=== PATIENT | male | born 1975 | race Caucasian/White ===

== ENCOUNTER 2016-11-28 07:25 | Day surgery (SDC) | payer BC, OTHER ==
[~2016-11-28] VITALS: Ht 185.4 cm; Wt 82.0 kg
[2016-11-28] VITALS (18 sets, daily range): BP systolic 100–119; BP diastolic 53–76; PULSE 74–92; RESP 14–20; Ht 185.4 cm; Wt 82.0 kg
[2016-11-28] MEDS ORDERED: ATOR40TA68 PO (07:44)
[2016-11-28] MEDS ORDERED: ASPI325T4 PO (07:44)
[2016-11-28] MEDS ORDERED: VERAPAMIL 5 MG INJ ONE (09:49)
[2016-11-28] MEDS ORDERED: NITROGLYCERIN (IC) 100 MCG/ML INJ ONE (09:49)
[2016-11-28] MEDS ORDERED: FENTAnyl 50 MCG/ML VIAL ONE (09:49)
[2016-11-28] MEDS ORDERED: MIDAZOLAM 1 MG/ML 2 ML INJ ONE (09:49)
[2016-11-28] MEDS ORDERED: HEPARIN 1000 UNITS/ML 10 ML INJ ONE (09:49)
[2016-11-28] MEDS ORDERED: LIDOCAINE 1% (MDV) 20 ML INJ ONE (09:49)
[2016-11-28] MEDS ORDERED: SOD CHLORIDE 0.9% 1,000 ML IV SCH (10:39)
--- NOTE | 2016-11-28 10:45 | OPR ---
Date/Time of Note Date/Time of Note DATE: 11/28/16 TIME: 10:44 Operative Report Preoperative Diagnosis Nstemi Postoperative Diagnosis non-obstructive cad Operation/Procedure Performed 1.[facility] Surgeon: AVNI BENJAMIN Anesthesia Type: moderate sedation Specimen: none Complications: no AVNI BENJAMIN Nov 28, 2016 10:45
[2016-11-28] MEDS ORDERED: AL HYDROX/MG HYDROX/SIMETH 30 ML CUP PO PRN (11:00)
[2016-11-28] MEDS ORDERED: morphine 2 MG INJ IV PRN (11:00)
[2016-11-28] MEDS ORDERED: ACETAMINOPHEN 325 MG TAB PO PRN (11:00)
[2016-11-28] MEDS ORDERED: ONDANSETRON 4 MG INJ IV PRN (11:00)
--- NOTE | 2016-11-28 11:37 | CARRPT ---
DATE OF PROCEDURE: 11/28/2016 REASON FOR LEFT HEART CATHETERIZATION: [id number] myocardial infarction. TYPE OF PROCEDURE: 1. Left heart catheterization. 2. Coronary angiography. 3. Left ventriculogram. 4. Three minutes of moderate consultation. ATTENDING PHYSICIAN: Dr. Magno Cedeno. ANESTHESIA: Conscious, local. INDICATION: Veo-[id number] myocardial infarction. BRIEF HISTORY AND HOSPITAL COURSE: Mr. Ponce is a 41-year-old male without significant past medical history, underwent a procedure for septal deviation. Postprocedure, patient developed chest pain and had a eyp-YV-[id number] myocardial infarction. left heart catheterization to assess the possibility of significant cardiac disease, vague complaints of chest pain and subsequent [id number]-GR-[id number] myocardial infarction. PROCEDURE: After informed consent was obtained, patient was brought to [facility] where his right and left groins were prepped and draped in the usual sterile fashion. 2 percent lidocaine was infiltrated in the right radial area in order to achieve adequate anesthesia. Using the modified Seldinger technique, the radial artery was cannulated and a 6-Ecuadorean arterial sheath, a 6-Ecuadorean JL3.5 catheter was used to cath the left main coronary ostium. After contrast injection was used, multiple views of the left coronary ostium were obtained. A JL3.5 was removed over a guidewire and a JR4 was used to cath the right coronary ostium. Contrast injection was used and multiple views of the right coronary ostium were obtained. The JR4 was removed over a guidewire and a 6-Ecuadorean pigtail was passed in the ascending aorta, placed in the left ventricle. The patient was given 20 of contrast. A left ventriculogram was performed and pullback across the aortic valve to assess for severe gradient, which there was none, removed. Subsequently, the patient's sheath was removed. TR band was applied. At the completion of the procedure, there were no known complications. FINDINGS: Coronary angiography: Left main, 4 mm, no significant stenosis. Circumflex proximally is a 3.5 mm vessel and has mild 20 percent stenosis in its mid portion. The remaining circumflex is free of any significant focal stenosis. It is a codominant vessel, and therefore, gives off a 2.5 mm PDA and a 2.5 mm posterolateral branch, each with no evidence of focal stenosis. The patient's LAD proximally is a 3.5 mm vessel with 20 percent stenosis mid portion. The remainder of the LAD is free of significant focal stenosis. Around the apex, there was a mid branching diagonal, 2 mm with no significant focal stenosis. The patient's right coronary artery proximally is 3 mm. It gives off a very small PDA subcentimeter with no significant focal stenosis. Left ventriculogram revealed a preserved left ejection fraction of 55 percent to 60 percent. Left ventricle end-diastolic: 20 pre LV-gram, 23 post LV-gram, no significant stenosis by gradient. 1+ mitral valve regurgitation. TOTAL FLUOROSCOPY TIME: 2.4 minutes. TOTAL CONTRAST: 90 cc. IMPRESSION: 1. 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 2. Elevated left heart filling pressures. 3. No significant aortic stenosis by gradient. RECOMMENDATIONS: In light of findings at this time, would: 1. Maximize medical management including initiation of beta blockers. 2. Aggressive risk factor reduction. 3. Patient [facility] post catheter[facility] with probable discharge later this afternoon. Dictated By: Paco Zimmer /thomas/prema /Document#: [id number] CC: Fer Garcia MD;*[facility]*
== END 2016-11-28 20:38 | disposition short-term general hospital (02) ==
LOC: CCL 07:25 → REC 10:43 → UNDOADMIN 10:43 → CCL 10:43
PROVIDERS: ATTEND Internal Medicine
DX: I21.4 Non-ST elevation (NSTEMI) myocardial infarction (principal); I25.10 Atherosclerotic heart disease of native coronary artery without angina pectoris
CPT/HCPCS: 93458; C1769; C1887; J1644; J2250; J3010